=== PATIENT | male | born 1985 | race Two or more races ===

== ENCOUNTER 2020-01-23 05:01 | Inpatient (IN) | payer MEDICARE, MEDICAID ==
[2020-01-23] VITALS (9 sets, daily range): BP systolic 102–136; BP diastolic 59–74
[~2020-01-23] VITALS: Ht 177.8 cm; Wt 59.0 kg
--- NOTE | 2020-01-23 05:06 | Emergency Room Report ---
History of Present Illness General Chief Complaint: Overdose Source: EMS (Jj Quiles MD) Present Illness HPI Disclaimer: Please note that this report is being documented using DRAGON technology. This can lead to erroneous entry secondary to incorrect interpretation by the dictating instrument. HPI: 34-year-old male presents by EMS for altered mental status. EMS was called by [employer] as the patient was found trying to break into houses and behaving erratically. Not responding to questions. Patient was agitated and arrives handcuffed to [facility]. He is trying to get out of the [facility], not responding to questions, twitching movements. Unable to obtain information from patient. EMS states he is in their system for psychiatric and drug related transports to hospital. Patient was not put on hold and is not in custody per [employer] PMH: Unable to obtain from patient PSH: Unable to obtain from patient Allergies: Unable to obtain from patient Social Hx: Unable to obtain from patient (Jj Quiles MD) Allergies: Coded Allergies: No Known Allergies (Unverified , 01/23/20) COVID-19 Screening Contact w/high risk pt: No Experienced COVID-19 symptoms?: No COVID-19 Testing performed WORM FARMER: No (Jj Quiles MD) Review of Systems All Other Systems: limited - Unable to obtain from patient due to clinical condition (Jj Quiles MD) Physical Exam Vital Signs Date Time Temp Pulse Resp B/P (MAP) Pulse Ox O2 Delivery O2 Flow Rate FiO2 01/23/20 04:57 98.2 105 20 136/74 (94) 96 Room Air General: Awake, agitated, restrained to [facility] HEENT: NC/AT. EOMI. bilateral horizontal nystagmus. Very dry mucous membranes. Repetitive lip smacking Cardiovascular: Tachycardic Resp: Normal work of breathing. No cough, wheezing or crackles appreciated Abdomen: Abdomen is soft, nondistended. Skin: Intact. No abrasions, laceration or rash over the exposed skin MSK: Normal tone and bulk. Moving all extremities. No obvious deformity. Twitching repetitive movements in all extremities. Neuro: Awake, altered. Not responding verbally. Hyperactive. (Jj Quiles MD) Procedures Critical Care Time Critical Care Time i. I feel this is a highly complex case requiring extensive working including EKG/Rhythm strip, Xray/CT/US, Blood/urine lab work, repeat exams while in ED, and administration of strong opiates/narcotics for pain control, admission to hospital or close patient follow up. Total time: 90 min bedside evaluation and treatment excludes procedures (EKG). Reason for critical care: Agitated behavior, altered level of consciousness Possible complications: hypotension, hypertension, MD, shock, arrhythmias, metabolic acidosis, end organ damage, respiratory failure. Interventions: CT, drug screen, restraints, repeated sedation Course: Signed out to me pending reassessment. Initially very agitated and required sedation with Benadryl and Ativan. Patient continued to require additional rounds of sedation. Given multiple rounds of Ativan and Haldol. CT head negative. Drug screen positive for amphetamines. Patient remains altered. BUN/creatinine elevated. Believe patient requires admission for IV hydration and psychiatric evaluation Consultations: nursing staff, EMS, family Performed by: Dr Stanton Tolerated well condition = serious j. because of unstable vital signs this patient had a condition that could potentially threaten life or limb. I feel this is a critical patient who required my full attention while patient was considered critical. Total Critical Care Time excluding procedures was greater than 90 minutes (Pedro Stanton MD) Medical Decision Making Diagnostic Impression: Primary Impression: Acute encephalopathy Additional Impressions: Substance abuse Renal insufficiency ER Course This a 34-year-old male presenting for evaluation of altered mental status and agitation. Differential includes but is not limited to alcohol or drug intoxication, acute psychiatric break, acute dystonic reaction, extraparametal syndrome, serotonin syndrome, NMS, thyroid storm, intracranial injury or mass, severe dehydration among others. Patient will require sedation and restraint. Broad labs and head CT ordered. Patient will be signed out to oncoming provider pending lab/imaging results and final disposition. (Jj Quiles MD) ER Course Hospital Course 34-year-old male presents altered and agitated Clinical course patient initially seen and evaluated by Dr Quiles. See his note for full history and physical Signed out to me for reassessment. Remains agitated and requiring additional sedation and continued restraints. Labs reviewed- leukocytosis noted, BUN/creatinine elevated. Drug screen positive for amphetamines CT brain shows no acute pathology Patient requires continued restraints. Requiring additional sedation. I do not believe patient can be safely discharged and medically cleared. Likely has psychiatric history. Will require continued IV hydration. Dr Jaime contacted to see patient case discussed with Dr. Gonzales and he agreed to accept the patient to his service for further care and support i. I feel this is a highly complex case requiring extensive working including EKG/Rhythm strip, Xray/CT/US, Blood/urine lab work, repeat exams while in ED, and administration of strong opiates/narcotics for pain control, admission to hospital or close patient follow up. Diagnosis -acute encephalopathy, substance abuse renal insufficiency Admitted to floor in sreious condition Laboratory Tests Test 01/23/20 05:13 01/23/20 11:35 White Blood Count 19.7 K/UL (4.8-10.8) H Red Blood Count 4.39 M/UL (4.70-6.10) L Hemoglobin 13.9 G/DL (14.2-18.0) L Hematocrit 39.9 % (42.0-52.0) L Mean Corpuscular Volume 91 FL (80-99) Mean Corpuscular Hemoglobin 31.6 PG (27.0-31.0) H Mean Corpuscular Hemoglobin Concent 34.7 G/DL (32.0-36.0) Red Cell Distribution Width 11.7 % (11.6-14.8) Platelet Count 345 K/UL (150-450) Mean Platelet Volume 5.7 FL (6.5-10.1) L Neutrophils (%) (Auto) % (45.0-75.0) Lymphocytes (%) (Auto) % (20.0-45.0) Monocytes (%) (Auto) % (1.0-10.0) Eosinophils (%) (Auto) % (0.0-3.0) Basophils (%) (Auto) % (0.0-2.0) Differential Total Cells Counted 100 Neutrophils % (Manual) 84 % (45-75) H Lymphocytes % (Manual) 10 % (20-45) L Monocytes % (Manual) 6 % (1-10) Eosinophils % (Manual) 0 % (0-3) Basophils % (Manual) 0 % (0-2) Band Neutrophils 0 % (0-8) Platelet Estimate Adequate Platelet Morphology Normal Sodium Level 147 MMOL/L (136-145) H Potassium Level 3.8 MMOL/L (3.5-5.1) Chloride Level 106 MMOL/L (98-107) Carbon Dioxide Level 31 MMOL/L (21-32) Anion Gap 11 mmol/L (5-15) Blood Urea Nitrogen 39 mg/dL (7-18) H Creatinine 1.9 MG/DL (0.55-1.30) H Estimat Glomerular Filtration Rate 40.3 mL/min (>60) Glucose Level 83 MG/DL (74-106) Calcium Level 9.6 MG/DL (8.5-10.1) Total Bilirubin 0.9 MG/DL (0.2-1.0) Aspartate Amino Transf (AST/SGOT) 48 U/L (15-37) H Alanine Aminotransferase (ALT/SGPT) 41 U/L (12-78) Alkaline Phosphatase 79 U/L (46-116) Total Protein 8.5 G/DL (6.4-8.2) H Albumin 4.3 G/DL (3.4-5.0) Globulin 4.2 g/dL Albumin/Globulin Ratio 1.0 (1.0-2.7) Salicylates Level 1.9 ug/mL (2.8-20) L Acetaminophen Level < 2 MCG/ML (10-30) L Serum Alcohol < 3 mg/dL Urine Opiates Screen Negative (NEGATIVE) Urine Barbiturates Screen Negative (NEGATIVE) Phencyclidine (PCP) Screen Negative (NEGATIVE) Urine Amphetamines Screen Positive (NEGATIVE) H Urine Benzodiazepines Screen Negative (NEGATIVE) Urine Cocaine Screen Negative (NEGATIVE) Urine Marijuana (THC) Screen Negative (NEGATIVE) (Pedro Stanton MD) EKG Diagnostic Results Rate: tachycardiac Rhythm: NSR ST Segments: no acute changes ASA given to the pt in ED: No (Pedro Stanton MD) Rhythm Strip Diag. Results EP Interpretation: yes Rhythm: NSR, no PVC's, no ectopy (Pedro Stanton MD) CT/MRI/US Diagnostic Results CT/MRI/US Diagnostic Results : Imaging Test Ordered: CT Head Impression Procedure: CT Head no Contrast Indications: Altered mental status Technique: Spiral acquisitions obtained through the brain. Angled axial and coronal 5 x 5 mm slices were reconstructed. Total dose length product and 98 mGycm. CTDI vol(s) 53 mGy. Dose reduction achieved using automated exposure control Comparison: None. Findings: No acute intracranial hemorrhage or edema. No mass effect nor midline shift. Normal suárez-white differentiation. Mildly prominent frontal and parietal extra axial CSF spaces. Intact calvarium. Visualized orbits and sinuses are unremarkable. The mastoids are clear. Impression: Negative for acute intracranial bleed or mass effect Mild frontal and parietal orbital volume loss, out of proportion to age The CT scanner at [facility] is accredited by the [employer] and the scans are performed using protocols designed to limit radiation exposure to as low as reasonably achievable to attain images of sufficient resolution adequate for diagnostic evaluation. (Pedro Stanton MD) Last Vital Signs Date Time Temp Pulse Resp B/P (MAP) Pulse Ox O2 Delivery O2 Flow Rate FiO2 01/23/20 04:57 98.2 105 20 136/74 (94) 96 Room Air (Jj Quiles MD) Status: improved (Pedro Stanton MD) Disposition: ADMITTED INPATIENT Condition: Serious Jj Quiles MD Jan 23, 2020 05:06 Pedro Stanton MD Jan 23, 2020 14:22
[2020-01-23] MEDS ORDERED: LORazepam Inj 2mg/ml 1ml IV ONE ×2 (05:15→07:30)
[2020-01-23] MEDS ORDERED: DiphenhydrAMINE 50mg/ml Inj IVP ONE ×2 (05:15→05:45)
[2020-01-23 05:43] LABS: HEMATOCRIT 39.9 % (42.0-52.0); HEMOGLOBIN 13.9 G/DL (14.2-18.0); MEAN CORPUSCULAR VOLUME 91 FL (80-99); PLATELET COUNT 345 K/UL (150-450); RED BLOOD COUNT 4.39 M/UL (4.70-6.10); RED CELL DISTRIBUTION WIDTH 11.7 % (11.6-14.8); WHITE BLOOD COUNT 19.7 K/UL (4.8-10.8)
[2020-01-23] MEDS ORDERED: LORazepam Inj 2mg/ml 1ml ONE ×2 (05:45→07:27)
[2020-01-23 05:52] LABS: ANION GAP 11 mmol/L (5-15); BLOOD UREA NITROGEN 39 mg/dL (7-18); CALCIUM 9.6 MG/DL (8.5-10.1); CARBON DIOXIDE 31 MMOL/L (21-32); CHLORIDE 106 MMOL/L (98-107); CREATININE 1.9 MG/DL (0.55-1.30); POTASSIUM 3.8 MMOL/L (3.5-5.1); SODIUM 147 MMOL/L (136-145)
[2020-01-23 06:03] LABS: ALANINE AMINOTRANSFERASE 41 U/L (12-78); ALBUMIN 4.3 G/DL (3.4-5.0); ALKALINE PHOSPHATASE 79 U/L (46-116); ASPARTATE AMINO TRANSFERASE 48 U/L (15-37); BILIRUBIN,TOTAL 0.9 MG/DL (0.2-1.0)
[2020-01-23] MEDS ORDERED: Haloperidol 5mg/ml Inj ONE (09:45)
[2020-01-23] MEDS ORDERED: Haloperidol 5mg/ml Inj IM ONE (09:45)
--- NOTE | 2020-01-23 12:50 | Cardiology Report ---
APPROVED REPORT EKG Measurement Heart [id number] <Conclusion> Sinus tachycardia Otherwise normal ECG
--- NOTE | 2020-01-23 13:43 | Diagnostic Imaging Report ---
Indications: Altered mental status Technique: Spiral acquisitions obtained through the brain. Angled axial and coronal 5 x 5 mm slices were reconstructed. Total dose length product and 98 mGycm. CTDI vol(s) 53 mGy. Dose reduction achieved using automated exposure control Comparison: None. Findings: No acute intracranial hemorrhage or edema. No mass effect nor midline shift. Normal suárez-white differentiation. Mildly prominent frontal and parietal extra axial CSF spaces. Intact calvarium. Visualized orbits and sinuses are unremarkable. The mastoids are clear. Impression: Negative for acute intracranial bleed or mass effect Mild frontal and parietal orbital volume loss, out of proportion to age The CT scanner at [facility] is accredited by the [employer] and the scans are performed using protocols designed to limit radiation exposure to as low as reasonably achievable to attain images of sufficient resolution adequate for diagnostic evaluation.
[2020-01-23] MEDS ORDERED: Haloperidol 5mg/ml Inj IM PRN (16:15)
[2020-01-23] MEDS ORDERED: LORazepam Inj 2mg/ml 1ml IV PRN (16:15)
[2020-01-23] MEDS ORDERED: LORazepam 1mg tab ORAL PRN (17:00)
[2020-01-23] MEDS: Enoxaparin 40mg Inj SUBQ SCH (17:10)
[2020-01-23] MEDS: D5 1/2NS 1,000 ML IV SCH (17:11)
--- NOTE | 2020-01-23 17:40 | History and Physical ---
History of Present Illness General Date patient seen: Jan 23, 2020 Time patient seen: 13:50 Reason for Hospitalization: Overdose Present Illness HPI 34 y/o M Patient brought in by ambulance [id number] accompanied by [employer] d/t unknown substance use [place] [facility] [place]. The patient was tachycardic upon arrival, unable to control muscle movement and unable to provide informatio n. Patient placed on bus driver/monitor. Left forearm 20g IV started, blood drawn. No acute distress noted per initial ED report. Workup was noted to be positive for Amphetamines in the urine, leukocytosis of 19.7 thousand, Cr: 1.9 Patient had 3 lt NS and multiple rounds of Ativan ( 2 mg x 3 ) and Haldol IM 5 mg x 1 due to agitation. Admission is requested as he is not able to be medically stable at this time. He is sedated and unable to provide information at this time. Restraints used in the ED to prevent self harm. 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 Last 24 Hour Vital Signs Date Time Temp Pulse Resp B/P (MAP) Pulse Ox O2 Delivery O2 Flow Rate FiO2 01/23/20 16:00 98.3 98 19 113/66 (82) 97 01/23/20 15:51 Room Air 01/23/20 15:03 98.8 92 17 116/72 100 Room Air 01/23/20 13:03 98.7 86 16 102/66 98 Room Air 01/23/20 11:00 98.4 84 16 106/71 99 Room Air 01/23/20 08:53 98.4 91 13 104/62 100 Room Air 01/23/20 07:57 100 15 98/57 100 01/23/20 07:27 99 15 109/65 99 01/23/20 07:04 98.2 99 15 112/65 99 Room Air 01/23/20 07:02 102 16 109/60 99 Room Air 01/23/20 05:42 120 22 99 01/23/20 05:01 98.2 116 25 136/74 99 Room Air 01/23/20 05:01 116 25 Room Air 01/23/20 04:57 98.2 105 20 136/74 (94) 96 Room Air Intake and Output 01/22/20 01/23/20 19:00 07:00 Intake Total 1000 ml Balance 1000 ml Intake Oral 0 ml IV Total 1000 ml Laboratory Tests Test 01/23/20 05:13 01/23/20 11:35 White Blood Count 19.7 K/UL (4.8-10.8) H Red Blood Count 4.39 M/UL (4.70-6.10) L Hemoglobin 13.9 G/DL (14.2-18.0) L Hematocrit 39.9 % (42.0-52.0) L Mean Corpuscular Volume 91 FL (80-99) Mean Corpuscular Hemoglobin 31.6 PG (27.0-31.0) H Mean Corpuscular Hemoglobin Concent 34.7 G/DL (32.0-36.0) Red Cell Distribution Width 11.7 % (11.6-14.8) Platelet Count 345 K/UL (150-450) Mean Platelet Volume 5.7 FL (6.5-10.1) L Neutrophils (%) (Auto) % (45.0-75.0) Lymphocytes (%) (Auto) % (20.0-45.0) Monocytes (%) (Auto) % (1.0-10.0) Eosinophils (%) (Auto) % (0.0-3.0) Basophils (%) (Auto) % (0.0-2.0) Differential Total Cells Counted 100 Neutrophils % (Manual) 84 % (45-75) H Lymphocytes % (Manual) 10 % (20-45) L Monocytes % (Manual) 6 % (1-10) Eosinophils % (Manual) 0 % (0-3) Basophils % (Manual) 0 % (0-2) Band Neutrophils 0 % (0-8) Platelet Estimate Adequate Platelet Morphology Normal Sodium Level 147 MMOL/L (136-145) H Potassium Level 3.8 MMOL/L (3.5-5.1) Chloride Level 106 MMOL/L (98-107) Carbon Dioxide Level 31 MMOL/L (21-32) Anion Gap 11 mmol/L (5-15) Blood Urea Nitrogen 39 mg/dL (7-18) H Creatinine 1.9 MG/DL (0.55-1.30) H Estimat Glomerular Filtration Rate 40.3 mL/min (>60) Glucose Level 83 MG/DL (74-106) Calcium Level 9.6 MG/DL (8.5-10.1) Total Bilirubin 0.9 MG/DL (0.2-1.0) Aspartate Amino Transf (AST/SGOT) 48 U/L (15-37) H Alanine Aminotransferase (ALT/SGPT) 41 U/L (12-78) Alkaline Phosphatase 79 U/L (46-116) Total Protein 8.5 G/DL (6.4-8.2) H Albumin 4.3 G/DL (3.4-5.0) Globulin 4.2 g/dL Albumin/Globulin Ratio 1.0 (1.0-2.7) Salicylates Level 1.9 ug/mL (2.8-20) L Acetaminophen Level < 2 MCG/ML (10-30) L Serum Alcohol < 3 mg/dL Urine Opiates Screen Negative (NEGATIVE) Urine Barbiturates Screen Negative (NEGATIVE) Phencyclidine (PCP) Screen Negative (NEGATIVE) Urine Amphetamines Screen Positive (NEGATIVE) H Urine Benzodiazepines Screen Negative (NEGATIVE) Urine Cocaine Screen Negative (NEGATIVE) Urine Marijuana (THC) Screen Negative (NEGATIVE) Height (Feet): 5 Height (Inches): 10.00 Weight (Pounds): 130 Medications Current Medications Medications (Trade) Dose Ordered Sig/Tyler Route PRN Reason Start Time Stop Time Status Last Admin Dose Admin Acetaminophen (Tylenol) 650 mg Q4H PRN ORAL Mild Pain (Pain Scale 1-3) 01/23/20 16:15 02/22/20 16:14 Acetaminophen (Tylenol) 650 mg Q4H PRN ORAL Temp >100.5 01/23/20 16:15 02/22/20 16:14 Bisacodyl (Dulcolax) 10 mg HSPRN PRN RECTAL Constipation 01/23/20 16:15 04/22/20 16:14 Dextrose (Dextrose 50%) 25 ml Q30M PRN IV Hypoglycemia 11/25/20 16:15 04/22/20 16:14 Dextrose (Dextrose 50%) 50 ml Q30M PRN IV Hypoglycemia 01/23/20 16:15 04/22/20 16:14 Dextrose/Sodium Chloride 1,000 ml @ 75 mls/hr [id number] IV 01/23/20 16:22 02/22/20 16:21 01/23/20 17:11 Docusate Sodium (Colace) 100 mg EVERY 12 HOURS ORAL 01/23/20 21:00 02/22/20 20:59 Enoxaparin Sodium (Lovenox) 40 mg Q24H SUBQ 01/23/20 18:00 04/22/20 17:59 01/23/20 17:10 Famotidine (Pepcid I.v.) 20 mg Q12HR IVP 01/23/20 21:00 02/22/20 20:59 Fluoxetine HCl (PROzac) 20 mg DAILY ORAL 01/24/20 09:00 02/23/20 08:59 Haloperidol Lactate (Haldol) 5 mg Q6H PRN IM Agitation 01/23/20 16:15 03/08/20 16:14 Lorazepam (Ativan) 2 mg Q6H PRN ORAL For Anxiety 01/23/20 17:00 01/30/20 16:59 Ondansetron HCl (Zofran) 4 mg Q6H PRN IVP Nausea & Vomiting 01/23/20 16:15 02/22/20 16:14 Temazepam (Restoril) 15 mg HSPRN PRN ORAL Insomnia 01/23/20 16:15 01/30/20 16:14 Assessment/Plan Status: stable Assessment/Plan: 34 y/o M admitted to the hospital with: # Altered mental status Metabolic encephalopathy due to amphetamine use vs underlying infection vs other IVF completed 3 lt in the ED Continue supportive IVF for now Psychiatry consultation requested from the ED with Dr. Jaime who will assist with his evaluation and possible need for psychiatric follow up as indicated. # MACRINA Cr: 1.9 Monitor level in AM as he received 3 lt in the ED Suspect prerenal etiology and dehydration. # Amphetamine use Psychiatry follow up Social work support for community resources. # DVT ppx # GI ppx # Precautions Consider restraints if the patient develops signs of severe agitation, danger to himself or others. FULL CODE Lula Gonzales MD Jan 23, 2020 17:40
[2020-01-23] MEDS: Docusate 100mg cap ORAL SCH (20:16)
--- NOTE | 2020-01-23 23:15 | Consultation ---
DATE OF CONSULTATION: 01/23/2020 HISTORY OF PRESENT ILLNESS: This is a 34-year-old male with a history of substance use disorder who came into the hospital by [employer]. The patient has a history of substance use disorder. I was contacted by the emergency room physician to consult on this patient. The patient was admitted to medical floor. Upon evaluation, the patient was difficult to arouse. He was not confused and was able to answer the question and his body was ____. He denied any suicidal or homicidal ideation. He denied using drugs. His urine toxicology is positive for amphetamine. He stated that he has a history of depression and taking fluoxetine. PAST PSYCHIATRIC HISTORY: He has a history of depression. No suicide attempt. PAST MEDICAL HISTORY: Nonsignificant. ALLERGIES: No known drug allergies. SUBSTANCE ABUSE HISTORY: Significant for crystal meth. MENTAL STATUS EXAMINATION: Alert and oriented to times self, place, situation. Mood is anxious. Affect is blunted. Congruent with mood. Thought process is concrete. Thought content, there is no suicidal or homicidal ideation. Cognition is impaired. Insight and judgment limited. ASSESSMENT: AXIS I: Methamphetamine abuse. Major depressive disorder. AXIS II: Deferred. AXIS III: None. AXIS IV: Homelessness. AXIS V: 60. PLAN: 1. The patient is cleared to discharge from psychiatric point of view. When medically cleared, the patient should be discharged. 2. Ativan by mouth as needed. 3. Prozac. 4. The patient is not an imminent danger to self or others. Kun Jaime M.D. DR: ALISA JOB#: [id number] CC:
[2020-01-24 03:29] VITALS: BP 99/71
[2020-01-24] MEDS: D5 1/2NS 1,000 ML IV SCH ×2 (06:25→20:14)
[2020-01-24 07:24] LABS: BASOPHILS % (AUTO) 1.4 % (0.0-2.0); HEMATOCRIT 36.4 % (42.0-52.0); LYMPHOCYTES % (AUTO) 22.3 % (20.0-45.0); MEAN CORPUSCULAR VOLUME 88 FL (80-99); MONOCYTES % (AUTO) 9.3 % (1.0-10.0); NEUTROPHILS % (AUTO) 64.9 % (45.0-75.0); PLATELET COUNT 278 K/UL (150-450); RED BLOOD COUNT 4.13 M/UL (4.70-6.10); RED CELL DISTRIBUTION WIDTH 12.4 % (11.6-14.8); WHITE BLOOD COUNT 6.3 K/UL (4.8-10.8)
[2020-01-24 07:38] LABS: ALANINE AMINOTRANSFERASE 34 U/L (12-78); ALBUMIN 2.7 G/DL (3.4-5.0); ALBUMIN/GLOBULIN RATIO 0.8 (1.0-2.7); ALKALINE PHOSPHATASE 58 U/L (46-116); ANION GAP 4 mmol/L (5-15); ASPARTATE AMINO TRANSFERASE 41 U/L (15-37); BILIRUBIN,TOTAL 0.5 MG/DL (0.2-1.0); BLOOD UREA NITROGEN 20 mg/dL (7-18); CARBON DIOXIDE 29 MMOL/L (21-32); CHLORIDE 113 MMOL/L (98-107); POTASSIUM 3.9 MMOL/L (3.5-5.1); SODIUM 145 MMOL/L (136-145)
[2020-01-24 08:00] VITALS: BP 114/69
[2020-01-24] MEDS: Docusate 100mg cap ORAL SCH ×2 (08:13→20:15)
--- NOTE | 2020-01-24 11:30 | General Progress Note ---
Subjective Date patient seen: Jan 24, 2020 Time patient seen: 10:00 ROS Limited/Unobtainable: Yes Allergies: Coded Allergies: No Known Allergies (Unverified , 01/23/20) Subjective Patient is awake today, not agitated and remembers knocking on doors when he was picked up by the Police. He reports being homeless and not having a place to go back to. Denies anxiety at this time. Objective Last 24 Hour Vital Signs Date Time Temp Pulse Resp B/P (MAP) Pulse Ox O2 Delivery O2 Flow Rate FiO2 01/24/20 09:00 Room Air 01/24/20 08:00 97.9 68 16 114/69 (84) 100 01/24/20 03:29 97.2 69 16 99/71 (80) 100 01/23/20 23:49 97.3 77 16 111/59 (76) 97 01/23/20 21:00 Room Air 01/23/20 20:00 97.2 91 16 107/59 (75) 98 01/23/20 16:00 98.3 98 19 113/66 (82) 97 01/23/20 15:51 Room Air 01/23/20 15:03 98.8 92 17 116/72 100 Room Air 01/23/20 13:03 98.7 86 16 102/66 98 Room Air Intake and Output 01/23/20 01/24/20 19:00 07:00 Intake Total 2475 ml 1325 ml Balance 2475 ml 1325 ml Intake Oral 400 ml 500 ml IV Total 2075 ml 825 ml # Voids 1 Laboratory Tests 01/23/20 11:35: Urine Opiates Screen Negative, Urine Barbiturates Screen Negative, Phencyclidine (PCP) Screen Negative, Urine Amphetamines Screen PositiveH, Urine Benzodiazepines Screen Negative, Urine Cocaine Screen Negative, Urine Marijuana (THC) Screen Negative 01/24/20 06:35: White Blood Count 6.3#, Red Blood Count 4.13L, Hemoglobin 13.0L, Hematocrit 36.4L, Mean Corpuscular Volume 88, Mean Corpuscular Hemoglobin 31.4H, Mean Corpuscular Hemoglobin Concent 35.7, Red Cell Distribution Width 12.4, Platelet Count 278, Mean Platelet Volume 5.8L, Neutrophils (%) (Auto) 64.9, Lymphocytes (%) (Auto) 22.3, Monocytes (%) (Auto) 9.3, Eosinophils (%) (Auto) 2.0, Basophils (%) (Auto) 1.4, Sodium Level 145, Potassium Level 3.9, Chloride Level 113H, Carbon Dioxide Level 29, Anion Gap 4L, Blood Urea Nitrogen 20H, Creatinine 1.0, Estimat Glomerular Filtration Rate > 60, Glucose Level 94, Calcium Level 8.0L, Total Bilirubin 0.5, Aspartate Amino Transf (AST/SGOT) 41H, Alanine Aminotransferase (ALT/SGPT) 34, Alkaline Phosphatase 58, Total Protein 6.2L, Albumin 2.7L, Globulin 3.5, Albumin/Globulin Ratio 0.8L Height (Feet): 5 Height (Inches): 10.00 Weight (Pounds): 130 General Appearance: WD/WN EENT: PERRL/EOMI Neck: non-tender Cardiovascular: normal rate Respiratory/Chest: lungs clear Abdomen: non tender Neurologic: fishing worker II-XII grossly normal Skin: normal pigmentation Assessment/Plan Status: stable Assessment/Plan: 34 y/o M admitted to the hospital with: # Altered mental status Metabolic encephalopathy due to amphetamine use vs underlying infection vs other IVF completed 3 lt in the ED Continue supportive IVF for now Psychiatry consultation requested from the ED with Dr. Jaime who will assist with his evaluation and possible need for psychiatric follow up as indicated. # MACRINA Resolved after IVF 3 lt NS Cr: form 1.9 to 1 today Suspect prerenal etiology and dehydration. # Amphetamine use Psychiatry consult appreciated and cleared without need of further psychiatric HOLD or inpatient care. Social work support for community resources is needed prior to dc. # DVT ppx # GI ppx # Precautions Consider restraints if the patient develops signs of severe agitation, danger to himself or others. FULL CODE Lula Gonzales MD Jan 24, 2020 11:30
[2020-01-24 12:00] VITALS: BP 144/62
[2020-01-24 16:00] VITALS: BP 130/65
[2020-01-24] MEDS: Enoxaparin 40mg Inj SUBQ SCH (17:23)
[2020-01-24 20:00] VITALS: BP 114/59
[2020-01-25] VITALS: BP 116/63
[2020-01-25 04:00] VITALS: BP 110/65
[2020-01-25 08:00] VITALS: BP 120/75
[2020-01-25] MEDS: Docusate 100mg cap ORAL SCH ×2 (08:50→20:36)
[2020-01-25] MEDS: D5 1/2NS 1,000 ML IV SCH ×2 (08:51→20:36)
[2020-01-25 12:00] VITALS: BP 116/75
--- NOTE | 2020-01-25 13:50 | General Progress Note ---
Subjective Date patient seen: Jan 25, 2020 Time patient seen: 12:00 ROS Limited/Unobtainable: No Allergies: Coded Allergies: No Known Allergies (Unverified , 01/23/20) All Systems: reviewed and negative except above Subjective Patient is awake today, he was seen by PT and is not cleared for discharge. Objective Last 24 Hour Vital Signs Date Time Temp Pulse Resp B/P (MAP) Pulse Ox O2 Delivery O2 Flow Rate FiO2 01/25/20 12:00 98.1 74 16 116/75 (89) 100 01/25/20 09:00 Room Air 01/25/20 08:00 97.7 78 19 120/75 (90) 99 01/25/20 04:00 97.8 73 19 110/65 (80) 99 01/25/20 00:00 97.6 75 20 116/63 (80) 98 01/24/20 21:00 Room Air 01/24/20 20:00 97.8 77 19 114/59 (77) 99 01/24/20 16:00 98.0 70 17 130/65 (86) 98 Intake and Output 01/24/20 01/25/20 19:00 07:00 Intake Total 1665 ml 550 ml Balance 1665 ml 550 ml Intake Oral 840 ml 550 ml IV Total 825 ml # Voids 4 3 Height (Feet): 5 Height (Inches): 10.00 Weight (Pounds): 130 General Appearance: WD/WN EENT: PERRL/EOMI Neck: non-tender Cardiovascular: normal rate Respiratory/Chest: lungs clear Abdomen: non tender Extremities: normal range of motion Edema: trace edema Neurologic: manufacturing operator II-XII grossly normal Assessment/Plan Status: stable Assessment/Plan: 34 y/o M admitted to the hospital with: # Altered mental status Metabolic encephalopathy due to amphetamine use vs underlying infection vs other IVF completed 3 lt in the ED Psychiatry consultation requested from the ED with Dr. Jaime and cleared. # MACRINA Resolved after IVF 3 lt NS Cr: form 1.9 to 1 today Suspect prerenal etiology and dehydration. # Amphetamine use Psychiatry consult appreciated and cleared without need of further psychiatric HOLD or inpatient care. Social work support for community resources were given. # Generalized weakness and per PT not cleared for discharge today. Need follow up PT in the hospital and pending for discharge after. # DVT ppx # GI ppx # Precautions Consider restraints if the patient develops signs of severe agitation, danger to himself or others. FULL CODE Lula Gonzales MD Jan 25, 2020 13:50
[2020-01-25 16:00] VITALS: BP 125/99
[2020-01-25] MEDS: Enoxaparin 40mg Inj SUBQ SCH (17:30)
[2020-01-25 20:00] VITALS: BP 111/65
[2020-01-26] VITALS: BP 109/60
[2020-01-26 04:17] VITALS: BP 98/62
[2020-01-26 08:54] VITALS: BP 119/73
[2020-01-26] MEDS: Docusate 100mg cap ORAL SCH ×2 (09:03→20:13)
[2020-01-26] MEDS: D5 1/2NS 1,000 ML IV SCH (10:17)
--- NOTE | 2020-01-26 11:29 | General Progress Note ---
Subjective Date patient seen: Jan 26, 2020 Time patient seen: 11:00 ROS Limited/Unobtainable: No Allergies: Coded Allergies: No Known Allergies (Unverified , 01/23/20) Subjective Patient is feeling better. He was seen by PT and is not cleared for discharge yesterday. Needs to have PT session today. He has no questions about shelters information. Objective Last 24 Hour Vital Signs Date Time Temp Pulse Resp B/P (MAP) Pulse Ox O2 Delivery O2 Flow Rate FiO2 01/26/20 09:09 Room Air 01/26/20 08:54 98.1 75 18 119/73 (88) 99 01/26/20 04:17 96.8 112 26 98/62 (74) 93 01/26/20 00:00 98.0 71 19 109/60 (76) 98 01/25/20 21:00 Room Air 01/25/20 20:00 97.8 75 19 111/65 (80) 99 01/25/20 16:00 98.0 70 17 125/99 (108) 100 01/25/20 12:00 98.1 74 16 116/75 (89) 100 Intake and Output 01/25/20 01/26/20 19:00 07:00 Intake Total 1080 ml Balance 1080 ml Intake Oral 1080 ml # Voids 3 Height (Feet): 5 Height (Inches): 10.00 Weight (Pounds): 130 General Appearance: WD/WN EENT: PERRL/EOMI Neck: non-tender Cardiovascular: normal rate Respiratory/Chest: lungs clear Abdomen: soft Neurologic: kst operator II-XII grossly normal Assessment/Plan Status: stable Assessment/Plan: 34 y/o M admitted to the hospital with: # Altered mental status Metabolic encephalopathy due to amphetamine use vs underlying infection vs other IVF completed 3 lt in the ED Psychiatry consultation requested from the ED with Dr. Jaime and cleared. # MACRINA Resolved after IVF 3 lt NS Cr: form 1.9 to 1 afterwards. Suspect prerenal etiology and dehydration. Resolved. # Amphetamine use Psychiatry consult appreciated and cleared without need of further psychiatric HOLD or inpatient care. Social work support for community resources were given. # Generalized weakness and per PT not cleared for discharge today. Need follow up PT in the hospital and plan to discharge tomorrow. # DVT ppx # GI ppx # Precautions Consider restraints if the patient develops signs of severe agitation, danger to himself or others. FULL CODE Lula Gonzales MD Jan 26, 2020 11:29
[2020-01-26 12:00] VITALS: BP 137/92
[2020-01-26 16:52] VITALS: BP 128/90
[2020-01-26] MEDS: Enoxaparin 40mg Inj SUBQ SCH (18:23)
[2020-01-26 20:00] VITALS: BP 110/68
--- NOTE | 2020-01-26 23:49 | Psychiatric Progress Note ---
Psychiatry Progress Note Psychiatry Progress Note Medications Current Medications Medications (Trade) Dose Ordered Sig/Tyler Route PRN Reason Start Time Stop Time Status Last Admin Dose Admin Acetaminophen (Tylenol) 650 mg Q4H PRN ORAL Mild Pain (Pain Scale 1-3) 01/23/20 16:15 02/22/20 16:14 Acetaminophen (Tylenol) 650 mg Q4H PRN ORAL Temp >100.5 01/23/20 16:15 02/22/20 16:14 Bisacodyl (Dulcolax) 10 mg HSPRN PRN RECTAL Constipation 01/23/20 16:15 04/22/20 16:14 Dextrose (Dextrose 50%) 25 ml Q30M PRN IV Hypoglycemia 01/23/20 16:15 04/22/20 16:14 Dextrose (Dextrose 50%) 50 ml Q30M PRN IV Hypoglycemia 01/23/20 16:15 04/22/20 16:14 Dextrose/Sodium Chloride 1,000 ml @ 75 mls/hr [id number] IV 01/23/20 16:22 02/22/20 16:21 01/26/20 10:17 Docusate Sodium (Colace) 100 mg EVERY 12 HOURS ORAL 01/23/20 21:00 02/22/20 20:59 01/26/20 20:13 Enoxaparin Sodium (Lovenox) 40 mg Q24H SUBQ 01/23/20 18:00 04/22/20 17:59 01/26/20 18:23 Famotidine (Pepcid) 20 mg Q12HR ORAL 01/26/20 21:00 04/25/20 20:59 01/26/20 20:13 Fluoxetine HCl (PROzac) 20 mg DAILY ORAL 01/24/20 09:00 02/23/20 08:59 01/26/20 09:03 Haloperidol Lactate (Haldol) 5 mg Q6H PRN IM Agitation 01/23/20 16:15 03/08/20 16:14 Lorazepam (Ativan) 2 mg Q6H PRN ORAL For Anxiety 01/23/20 17:00 01/30/20 16:59 Ondansetron HCl (Zofran) 4 mg Q6H PRN IVP Nausea & Vomiting 01/23/20 16:15 02/22/20 16:14 Temazepam (Restoril) 15 mg HSPRN PRN ORAL Insomnia 01/23/20 16:15 01/30/20 16:14 Allergies: Coded Allergies: No Known Allergies (Unverified , 01/23/20) Objective Data Height (Feet): 5 Height (Inches): 10.00 Weight (Pounds): 130 General Appearance: WD/WN Assessment/Plan Status: stable Kun Jaime MD Jan 26, 2020 23:49
[2020-01-27] VITALS: BP 100/59
[2020-01-27] MEDS: D5 1/2NS 1,000 ML IV SCH (00:01)
[2020-01-27 04:00] VITALS: BP 108/61
[2020-01-27] MEDS ORDERED: FLUOXETINE HCL20 MG ORAL ×2 (07:22)
--- NOTE | 2020-01-27 07:24 | Discharge Instructions ---
Discharge Instructions Discharge Instructions Resume Normal Activity?: Yes Activity: as tolerated Special Instructions Refrain from amphetamine use and follow up with PCP 1-2 weeks For Surgical Patients May shower: Yes For Congestive Heart Failure Reminder Report to your physician any weight gain of 5 pounds or more in one week. Lula Gonzales MD Jan 27, 2020 07:24
--- NOTE | 2020-01-27 07:28 | Discharge Summary ---
Discharge Summary Hospital Course Date of Admission Jan 23, 2020 at 13:34 Date of Discharge 01/27/20 Admitting Diagnosis ALOC/substance abuse HPI Jamar Fernandes is a 34 year old male who was admitted on Jan 23, 2020 at 13:34 for Altered Level Of Concious/Substance Abuse Hospital Course 34 y/o M admitted to the hospital with: # Altered mental status Metabolic encephalopathy due to amphetamine use vs underlying infection vs other IVF completed 3 lt in the ED Psychiatry consultation with Dr. Jaime completed and the patient was started on fluoxetine for depression. He was cleared to discharge from the Hospital. # MACRINA Resolved after IVF 3 lt NS Cr: form 1.9 to 1 afterwards. Suspect prerenal etiology and dehydration. Resolved. # Amphetamine use Psychiatry consult appreciated and cleared without need of further psychiatric HOLD or inpatient care. Social work support for community resources were given. # Generalized weakness and per PT he is now stable to discharge.. Discharge Medications New Medications: Fluoxetine Hcl* (Fluoxetine Hcl*) 20 Mg Capsule 20 MG ORAL DAILY for 30 Days, #30 CAP Discharge Condition Upon Discharge: stable Discharge Vital Signs Last Vital Signs Date Time Temp Pulse Resp B/P (MAP) Pulse Ox O2 Delivery O2 Flow Rate FiO2 01/27/20 04:00 98.6 90 18 108/61 (77) 96 01/26/20 20:35 Room Air Discharge Disposition Patient was discharged to Patient remains in the hospital. Discharge Diagnoses: (1) Depression (2) Alteration consciousness (3) Renal insufficiency (4) Acute encephalopathy (5) Substance abuse Discharge Instructions Discharge Instructions Activity: as tolerated For Surgical Patients May shower: Yes Lula Gonzales MD Jan 27, 2020 07:28
[2020-01-27 08:00] VITALS: BP 114/73
[2020-01-27] MEDS: Docusate 100mg cap ORAL SCH (09:38)
--- NOTE | 2020-01-28 18:18 | Psychiatric Progress Note ---
Psychiatry Progress Note Psychiatry Progress Note Neurological/Psychiatric: Reports: anxiety, depressed, emotional problems Allergies: Coded Allergies: No Known Allergies (Unverified , 01/23/20) Objective Data Height (Feet): 5 Height (Inches): 10.00 Weight (Pounds): 130 General Appearance: WD/WN Additional Comments: Alert and oriented to times self, place, situation. Mood is anxious. Affect is blunted. Congruent with mood. Thought process is concrete. Thought content, there is no suicidal or homicidal ideation. Cognition is impaired. Insight and judgment limited. ASSESSMENT: AXIS I: Methamphetamine abuse. Major depressive disorder. AXIS II: Deferred. AXIS III: None. AXIS IV: Homelessness. AXIS V: 60. PLAN: 1. The patient is cleared to discharge from psychiatric point of view. When medically cleared, the patient should be discharged. 2. Ativan by mouth as needed. 3. Prozac. 4. The patient is not an imminent danger to self or others. Assessment/Plan Status: stable Kun Jaime MD Jan 28, 2020 18:17
== END 2020-01-27 14:53 | disposition other institution (70) | DRG 896 ==
LOC: EDBD 05:01 → EMR 05:14 → 4E 13:34 → EDBEDREQ 14:15 → EMR 15:05 → 4E 15:42
DX: F15.129 Other stimulant abuse with intoxication, unspecified (principal); G93.41 Metabolic encephalopathy; N17.9 Acute kidney failure, unspecified; F32.9 Major depressive disorder, single episode, unspecified; F15.10 Other stimulant abuse, uncomplicated; Z59.0 Homelessness
CPT/HCPCS: 36415; 70450; 80053; 80307; 85007; 85025; 87081; 93005; 96361; 96372; 96374; 96375; 96376; 99291; 99292; G0480; J7030